=== PATIENT | male | born 1970 | race Caucasian/White ===

== ENCOUNTER 2019-01-15 08:11 | Day surgery (SDC) | payer MEDICARE, MEDICAID ==
[2019-01-07 16:02] LABS: BASOPHILS # (AUTO) 0.1 X10'3 (0-0.2); BASOPHILS % (AUTO) 0.8 % (0-1); EOSINOPHILS # (AUTO) 0.2 X10'3 (0-0.9); EOSINOPHILS % (AUTO) 2.7 % (0-6); LYMPHOCYTES # (AUTO) 2.2 X10'3 (1.1-4.8); LYMPHOCYTES % (AUTO) 36.3 % (21-51); MEAN CORPUSCULAR HEMOGLOBIN 29.9 PG (27.0-31.0); MEAN CORPUSCULAR HGB CONC 33.5 g/dL (33.0-36.5); MEAN CORPUSCULAR VOLUME 89.4 FL (78-98); MEAN PLATELET VOLUME 9.3 FL (7.4-10.4); MONOCYTES # (AUTO) 0.5 X10'3 (0-0.9); MONOCYTES % (AUTO) 7.8 % (2-12); NEUTROPHILS # (AUTO) 3.2 X10'3 (1.8-7.7); NEUTROPHILS % (AUTO) 52.4 % (42-75); PRE OP HEMATOCRIT 45.1 % (42.0-52.0); PRE OP HEMOGLOBIN 15.1 g/dL (14.0-17.9); PRE OP PLATELET COUNT 218 X10'3 (140-440); RED BLOOD COUNT 5.05 X10'6 (4.70-6.10); RED CELL DISTRIBUTION WIDTH 13.3 % (11.5-14.5)
[2019-01-07 16:11] LABS: ALBUMIN 3.9 G/DL (3.4-5.0); ALBUMIN/GLOBULIN RATIO 1.2 (1.1-1.5); ALKALINE PHOSPHATASE 56 IU/L (46-116); BLOOD UREA NITROGEN 24 MG/DL (7-18); BUN/CREATININE RATIO 31.2 (5.4-32.0); CALCIUM 8.7 MG/DL (8.5-10.1); CHLORIDE 105 MMOL/L (99-107); CREATININE 0.77 MG/DL (0.60-1.10); PRE OP ALT 37 U/L (30-65); PRE OP ANION GAP 10 (8-16); PRE OP AST 22 U/L (10-37); PRE OP BILIRUB, TOTAL 0.2 MG/DL (0.0-1.0); PRE OP GLUCOSE 120 MG/DL (70-104); PRE OP POTASSIUM 3.7 MMOL/L (3.4-5.1); PRE OP SODIUM 141 MMOL/L (135-145); TOTAL CARBON DIOXIDE 26.2 MMOL/L (24-32); TOTAL PROTEIN 7.1 G/DL (6.4-8.2); eGFR > 90 ML/MIN
[~2019-01-15] VITALS: Ht 165.1 cm; Wt 121.1 kg
[2019-01-15] VITALS (9 sets, daily range): BP systolic 108–155; BP diastolic 68–89
[~2019-01-15 08:11] MED LIST: ASPI81TA30 PO; BACL10TA PO; CETI10TA15 PO; GABA-532 PO; LISI-604 PO; MULT-933 PO; NAPR-996 PO; OMEP20CA10 PO; SIMV20TA PO; ceFAZolin inj. 3,000 MG in normal saline 100ml IV soln 100 ML IV ONE; famotidine 20mg tablet PO ONE; oxyCODONE SR 10mg (sust. release) tab -2 tabs (20mg) PO ONE; ringers solution, lacted 1,000 ML IV SCH
[2019-01-15] MEDS ORDERED: morphine 4 MG/ML inj SYRINge IV PRN ×2 (09:25)
[2019-01-15] MEDS ORDERED: ondansetron/PF 4mg/2ml inj IV PRN (09:25)
[2019-01-15] MEDS ORDERED: meperidine/PF 25mg/ml syringe IV PRN ×3 (09:25)
[2019-01-15] MEDS ORDERED: proCHLORperazine 10 MG/2 ml inj IV PRN (09:25)
[2019-01-15] MEDS ORDERED: ringers solution, lacted 1,000 ML IV SCH (09:25)
[2019-01-15] MEDS ORDERED: epiNEPHrine 1 mg/ml 30ml MDV ONE (11:20)
[2019-01-15] MEDS ORDERED: BUPIVAcaine 0.5% W/EPI /PF 30ml vial IJ ONE (11:37)
[2019-01-15] MEDS ORDERED: ROPIVAcaine 0.5% (5mg/ml) 30ml vial ONE (12:09)
[2019-01-15] MEDS ORDERED: cloNIDine hcl/PF 100mcg/ml inj ONE (12:09)
[2019-01-15] MEDS ORDERED: fentaNYL/PF 50MCG/1 ML 2ML syringe ONE (12:11)
[2019-01-15] MEDS ORDERED: MIDAZolam 5mg/5ml vial ONE (12:11)
[2019-01-15] MEDS ORDERED: rocuronium 10mg/ml inj IV ONE (12:12)
[2019-01-15] MEDS ORDERED: propofol inj 20 ML IV ONE (12:12)
[2019-01-15] MEDS ORDERED: sevoflurane 250ml liquid IH ONE (12:16)
[2019-01-15] MEDS ORDERED: glycopyrrolate 0.2mg/ml inj ONE (14:16)
[2019-01-15] MEDS ORDERED: neostigmine methylsulfate 1 MG/ML 10ml vial ONE (14:16)
--- NOTE | 2019-01-15 14:20 | NUR ---
Received from OR via [facility], accompanied by Anesthesiologist SARA and report given by Anesthesiolgist. PATIENT WITH 20G PIV IN RIGHT UE RUNNING LR AT 100, DENIES PAIN. + RADIAL PULSE IN LEFT UE, IN SLING. DRESSING IS CDI. 10L MASK WITH 100% SATURATIONS. Addendum: 01/15/19 at 1433 by Michael Hatch RN, RN Amended: Links added.
--- NOTE | 2019-01-15 15:30 | NUR ---
ALL DC CRITERIA HAS BEEN MET. IV TAKEN OUT WITHOUT COMPLICATIONS. ALL INSTRUCTIONS COVERED AND ALL QUESTIONS ANSWERED. DRESSINGS CDI. OUT VIA WHEELCHAIR TO PERSONAL VEHICLE WHERE PATIENT WAS SECURED IN AND DRIVEN HOME BY FAMILY. VOIDED AND DRESSING CDI TO LEFT SHOULDER. Addendum: 01/15/19 at 1611 by Michael Hatch RN, RN Amended: Links added.
== END 2019-01-15 15:30 | disposition home or self-care (01) ==
LOC: PAS 08:11
PROVIDERS: ATTEND Orthopaedic Surgery
DX: S46.011A Strain of muscle(s) and tendon(s) of the rotator cuff of right shoulder, initial encounter (principal); M66.822 Spontaneous rupture of other tendons, left upper arm; M75.51 Bursitis of right shoulder; M65.811 Other synovitis and tenosynovitis, right shoulder; M75.41 Impingement syndrome of right shoulder; G47.30 Sleep apnea, unspecified; K21.9 Gastro-esophageal reflux disease without esophagitis; I10 Essential (primary) hypertension; Z87.891 Personal history of nicotine dependence; Z87.39 Personal history of other diseases of the musculoskeletal system and connective tissue; X58.XXXA Exposure to other specified factors, initial encounter; Y93.89 Activity, other specified; Y92.89 Other specified places as the place of occurrence of the external cause; Y99.8 Other external cause status; Z98.890 Other specified postprocedural states; Z79.899 Other long term (current) drug therapy
CPT/HCPCS: 29823; 29826; 36415; 64415; 80053; 82948; 85025; 93005; A6257; A6258; J0171; J0690; J0735; J2175; J2250; J2405; J2704; J2710; J3010; A4565; A7000; J2795; J3490; J7030; J7120

== ENCOUNTER 2025-06-16 06:00 | Day surgery (SDC) | payer MEDICARE, MEDICAID ==
[2025-06-10 11:35] LABS: MEAN PLATELET VOLUME 8.3 FL (7.4-10.4); PRE OP HEMATOCRIT 42.3 % (42.0-52.0); PRE OP HEMOGLOBIN 14.5 g/dL (14.0-17.9); PRE OP PLATELET COUNT 237 X10'3 (140-440); PRE OP WHITE BLOOD COUNT 5.7 10'3 (4.8-10.8); RED CELL DISTRIBUTION WIDTH 13.9 % (11.5-14.5)
--- NOTE | 2025-06-10 11:35 | ELECTROCARDIOGRAPH REPORT ---
[facility] Test Date: 2025-06-10 Test Time: 11:29:47 Pat Name: MINH BEAR Department: [facility]-PRE-OP Patient ID: [facility]-[id number] Room: Gender: M Survey Associate: KIA : 1970 Requested By: ALICIA MEDEL Order Number: [id number] Reading MD: Dr. MALLORY Vasquez Measurements Intervals [place] Rate: 69 P: 26 [place]: 151 QRS: -38 QRSD: 110 T: 42 QT: 417 QTc: 447 Interpretive Statements Sinus rhythm Left axis deviation Electronically Signed On 06-10-2025 19:17:[address] MALLORY Vasquez Please click the below link to view image of tracing.
[2025-06-10 11:49] LABS: CREATININE 0.77 MG/DL (0.60-1.10); PRE OP ALT 36 U/L (30-65); PRE OP AST 19 U/L (10-37); PRE OP BILIRUB, TOTAL 0.6 MG/DL (0.0-1.0); PRE OP GLUCOSE 100 MG/DL (70-104); PRE OP POTASSIUM 4.0 MMOL/L (3.4-5.1); TOTAL CARBON DIOXIDE 28.9 MMOL/L (24-32); eGFR > 90 ML/MIN
[2025-06-10 11:50] LABS: PRE OP ANION GAP 5 (8-16); PRE OP SODIUM 139 MMOL/L (135-145)
[~2025-06-16] VITALS: Ht 167.6 cm; Wt 104.3 kg
[2025-06-16] VITALS (15 sets, daily range): BP systolic 131–167; BP diastolic 86–110; PULSE 73–108; RESP 12–20; TEMP 98.6; O2SAT 92–98
[~2025-06-16 06:00] MED LIST changes: +ATOR20TA66 PO; -BACL10TA PO; -CETI10TA15 PO; +CYAN-34 PO; -GABA-532 PO; -LISI-604 PO; +LISI10TA27 PO; +METF-1203 PO; -NAPR-996 PO; -OMEP20CA10 PO; -SIMV20TA PO; -ceFAZolin inj. 3,000 MG in normal saline 100ml IV soln 100 ML IV ONE; -famotidine 20mg tablet PO ONE; -oxyCODONE SR 10mg (sust. release) tab -2 tabs (20mg) PO ONE
[2025-06-16] MEDS: ceFAZolin 2gm/dext,iso 50mL 50 ML IV ONE (06:19)
[2025-06-16] MEDS ORDERED: BUPIVAcaine 2.5mg/ml inj 50ml vial (contains preservative) ONE (06:42)
[2025-06-16] MEDS ORDERED: LIDOcaine 1% 30ml preserv. free vial ONE (06:42)
[2025-06-16] MEDS ORDERED: BUPIVACAINE liposomal/PF 13.3 MG/ML 10mL vial IM ONE ×2 (06:43→06:49)
--- NOTE | 2025-06-16 07:44 | HISTORY AND PHYSICAL ---
History & Physical Providers to CC CC: ALICIA MEDEL MD ~ History of Present Illness Reason for Admit\Complaint: Incisional hernia History of Present Illness Interval pre and physical exam Patient here today for elective repair of an incisional hernia He was seen in the office in March of this year and denies any change in his past medical history (please see previous history and physical exam for all pertinent details) He has a fairly large, epigastric incisional hernia centered in an area of rectus diastasis He is scheduled for robotic assisted, laparoscopic mesh repair of this incisional hernia Allergies: Coded Allergies: No Known Drug Allergies (Verified Allergy, Unknown, 01/14/19) bupropion (Verified Adverse Reaction, Unknown, nausea throw up, 01/14/19) Home Medications Home Medications Active Reported Vitamin B-12 (Cyanocobalamin (Vitamin B-12)) 1,000 Mcg Capsule 1 Cap PO DAILY 30 Days Metformin HCl 500 Mg Tablet 1 Tab PO QAM LIPITOR tablet (Atorvastatin Calcium) 20 Mg Tablet 1 Tab PO QAM 30 Days Lisinopril 10 Mg Tablet 1 Tab PO QAM 30 Days One Daily Multivitamin (Multivitamin) 1 Each Tablet 1 Tab PO DAILY 30 Days Aspirin 81 Mg Tab.chew 1 Tab PO DAILY 30 Days Exam Vitals: Vital Signs Date Time Temp Pulse Resp B/P (MAP) Pulse Ox O2 Delivery O2 Flow Rate FiO2 06/16/25 06:45 80 16 98 06/16/25 06:16 Room Air General: 55-year-old male in no acute distress Chest: Lungs clear to auscultation bilaterally Cardiovascular: Regular rate and rhythm without murmurs Abdomen: Soft and nondistended Diastasis of the rectus muscles along the entire epigastrium Centralized fairly large hernia defect; anticipate this is about 6 cm in diameter Problems: (1) Incisional hernia Assessment & Plan: The risks, benefits, and alternatives to a robotic assisted, laparoscopic incisional hernia repair with mesh were discussed with the patient. Risks include, but are not limited to, bleeding, infection, injury to intra- abdominal structures, hernia recurrence and chronic postoperative pain. Patient verbalized understanding and wishes to proceed with surgery. We will do so today as scheduled. ALICIA MEDEL MD Jun 16, 2025 07:44
[2025-06-16] MEDS ORDERED: fentaNYL /PF 50mcg/ml 5ml ampule ONE (08:01)
[2025-06-16] MEDS ORDERED: midazolam 1 mg/ML 2ml injection ONE (08:01)
[2025-06-16] MEDS ORDERED: rocuronium 10mg/ml inj IV ONE ×2 (08:12→10:07)
[2025-06-16] MEDS ORDERED: LIDOcaine 2% (20mg/ml) 5ml vial ONE (08:12)
[2025-06-16] MEDS ORDERED: propofol inj 20 ML IV ONE (08:12)
[2025-06-16] MEDS ORDERED: ondansetron/PF 4mg/2ml inj ONE (08:13)
[2025-06-16] MEDS ORDERED: dexamethasone sod phosphate 4mg/ml inj. ONE (08:13)
[2025-06-16] MEDS ORDERED: acetaminophen 1,000mg/100ml IV 100 ML IV ONE (08:21)
[2025-06-16] MEDS: BUPIVAcaine/PF 2.5 mg/ml (0.25%) 30ml vial IJ ONE (08:33)
[2025-06-16] MEDS ORDERED: morphine 10mg/ml inj. ONE (09:42)
[2025-06-16] MEDS ORDERED: meperidine/PF 25mg/ml syringe IV PRN ×3 (09:50)
[2025-06-16] MEDS ORDERED: enalaprilat 1.25mg/ml 2ml vial IV PRN (09:50)
[2025-06-16] MEDS ORDERED: labetalol 20mg/4ml (5mg/ml) syringe IV PRN (09:50)
[2025-06-16] MEDS ORDERED: ondansetron/PF 4mg/2ml inj IV PRN (09:50)
--- NOTE | 2025-06-16 10:47 | OPERATIVE REPORT ---
Operative Report Providers to CC CC: ROB MEDEL MD ~ Date of Procedure: Jun 16, 2025 Pre-Operative Diagnosis: Incisional hernia Post-Operative Diagnosis 12 cm incisional hernia Intra-abdominal adhesions Procedure Performed Robotic assisted, laparoscopic enterolysis Robotic assisted, laparoscopic 12 cm incisional hernia repair with mesh Bilateral transversus abdominis plane nerve blocks by injection using 266 mg of Exparel Surgeon: Rob Medel MD FACS Pole Cutter None Anesthesiologist: Rei Johnson Type of Anesthesia: General Findings: Very large 6 x 12 cm midline fascial defect along the upper abdomen Loops of small intestine adherent to the anterior abdominal wall and hernia fascial defect edge Wound class I Complications None Prosthetics\Implants used: 15 x 20 cm coated polyester mesh Estimated Blood Loss: Minimal Specimen Removed: None Description of Procedure: Patient was brought to the operating room and identified by the nursing staff and the attending physician. Patient was placed supine and a general anesthesia was induced. Preoperative antibiotics were given. The abdomen was prepped and draped in the standard sterile fashion. Through a left subcostal stab incision the abdomen was accessed with a Veress needle technique. Abdomen was insufflated without incident. The incision was lengthened to accommodate a 12 mm optical trocar and the abdomen was entered under laparoscopic visualization. The abdomen was surveyed laparoscopically. There was an obvious fascial defect in the upper abdominal midline. There were loops of small intestine adherent to the anterior abdominal in the left upper quadrant. Under laparoscopic visualization, robotic trochars were placed in the left lateral and left lower quadrant. The da Alyse robotic arm was docked to the patient and instruments guided intra-abdominally under laparoscopic visualization. First 20 minutes of the case was spent taking down adhesions between small bowel and the anterior abdominal wall. Once enterolysis was completed, attention was turned to the large defect in the abdominal midline. There was a very large associated hernia sac. Defect was measured and found to be 12 x 6 cm. Fascial defect(s) were then reapproximated with running, nonabsorbable, 0V lock suture. Good fascial apposition was obtained without significant tension. Hernia sac was included in the defect to decrease the amount of space. Two separate 18 in nonabsorbable sutures were used as well as three separate 9 in absorbable sutures to completely reapproximate the defect. A coated polyester mesh was then fixed to the anterior abdominal wall with running, absorbable, 2/0, V lock suture. Mesh laid without wrinkles or folds. The mesh measured 15 x 20 cm. To have adequate room for mesh fixation, two additional 8.5 mm robotic trocars were placed lateral to the initially placed ports. The da Alyse instruments were then removed and the robot undocked from the patient. Bilateral transversus abdominis plane nerve blocks by injection were then placed under laparoscopic visualization using a combination of Marcaine and 266 mg of Exparel. Absorbable tacking device was used to deploy 30 separate tacks to completely fix and flattened the hernia mesh to the anterior abdominal wall. The left subcostal trocar was removed and its fascia closed percutaneously with 0 Vicryl suture under laparoscopic visualization. Remaining trochars were removed after the abdomen was allowed to deflate. Skin was closed at all sites with 4-0 Monocryl sutures and dressed with sterile dressings. Patient was awakened and taken to the postanesthesia care unit in stable condition. Counts repoted as correct: Yes ROB MEDEL MD Jun 16, 2025 10:47
[2025-06-16] MEDS: ketorolac trometh 30MG/ML vial 30 MG/ML VIAL IV ONE (11:44)
[2025-06-16] MEDS: ringers solution, lacted 1,000 ML IV SCH (12:08)
[2025-06-16] MEDS: morphine 4 MG/ML inj SYRINge IV PRN (12:27)
[2025-06-16] MEDS: oxyCODONE/APAP 5-325mg tablet PO PRN (12:49)
== END 2025-06-16 12:50 | disposition home or self-care (01) ==
LOC: PAS 06:00
PROVIDERS: ATTEND Surgery
DX: K43.2 Incisional hernia without obstruction or gangrene (principal); I10 Essential (primary) hypertension; G47.30 Sleep apnea, unspecified; E11.9 Type 2 diabetes mellitus without complications; K21.9 Gastro-esophageal reflux disease without esophagitis; E78.5 Hyperlipidemia, unspecified; Z98.890 Other specified postprocedural states; Z79.899 Other long term (current) drug therapy; Z87.891 Personal history of nicotine dependence; Z79.82 Long term (current) use of aspirin
CPT/HCPCS: 36415; 49595; 64488; 80053; 82948; 85025; 93005; A4215; A4615; A4618; C1781; J0131; J0666; J1100; J1885; J2003; J2250; J2270; J2405; J2704; J3010; J3490; J7030; J7120; Z7506; Z7508; Z7512; Z7610; J2274